=== PATIENT | female | born 1950 | race Caucasian/White ===

== ENCOUNTER 2016-08-04 18:23 | Emergency (ER) | payer MEDICARE, OTHER ==
[2016-08-04] MEDS ORDERED: Ibuprofen TAB* 600 MG PO ONE (19:27)
--- NOTE | 2016-08-04 20:10 | RAD ---
INDICATION: Bilateral ankle pain COMPARISON: None TECHNIQUE: AP, lateral, and oblique views of each ankle were obtained. FINDINGS: Right ankle: The bony structures, joint spaces, and soft tissues are normal for age. Left ankle: There may be a lateral malleolar fracture. This would represent a nondisplaced fracture. There is a posterior malleolar fracture. The ankle activity clears normally. There is prominent lateral soft tissue swelling IMPRESSION: 1. NO ACUTE ABNORMALITIES OF THE RIGHT ANKLE 2. LEFT-SIDED POSTERIOR MALLEOLAR FRACTURE AND POSSIBLE NONDISPLACED LATERAL MALLEOLAR FRACTURE. LATERAL SOFT TISSUE SWELLING.
[2016-08-04 21:49] VITALS: BP 113/74
--- NOTE | 2016-08-04 21:57 | ED ---
Lower Extremity - HPI Summary HPI Summary: Patient is an otherwise healthy 65yo F who presents to ED s/p fall. She c/o bilateral ankle pain, swelling and ecchymosis with worse symptoms on the left. She denies hitting her head or LOC. She feels well otherwise and denies any other pain. She took Tylenol prior to arrival. She arrives by ambulance. Denies numbness or tingling or color changes. Denies pain in knees or other areas. Patient denies any blood thinners. She feels the injury occurred while tripping and plantarflexing the feet and rolling over them. History of breast CA. Patient of Dr. Watson for elbow injury last year. - History of Current Complaint Chief Complaint: EDExtremityLower Stated Complaint: FALL Time Seen by Provider: 08/04/16 18:36 Hx Obtained From: Patient Mechanism Of Injury: Twisted Onset of Pain: Immediate Onset/Duration: Hours Severity Initially: Moderate Severity Currently: Moderate Pain Intensity: 5 Pain Scale Used: 0-10 Numeric Timing: Constant Location: Is Discrete @ - bilateral lateral ankles Character Of Pain: Dull, Aching Associated Signs And Symptoms: Positive: Swelling, Redness, Bruising Aggravating Factor(s): Standing, Ambulation, Weight Bearing, Stairs Alleviating Factor(s): Rest, Elevation, Ice Able to Bear Weight: No - Risk Factors Gout Risk Factors: Age Over 40 DVT Risk Factors: Malignancy - prior breast cancer Septic Arthritis Risk Factor: Negative - Allergies/Home Medications Allergies/Adverse Reactions: Allergies Allergy/AdvReac Type Severity Reaction Status Date / Time Metz Oil [From Metz] Allergy Rash Verified 12/28/15 14:05 Gluten Meal Allergy Fatigue Verified 12/28/15 14:05 dairy Allergy Fatigue Uncoded 12/28/15 14:05 PMH/Surg Hx/FS Hx/Imm Hx Previously Healthy: Yes - Cancer History Cancer Type, Location and Year: Breast Ca Hx Chemotherapy: No Hx Radiation Therapy: No - Surgical History Surgery Procedure, Year, and Place: Exp lap. Tonsillectomy Infectious Disease History: No Infectious Disease History: Denies: History Other Infectious Disease, Traveled Outside the [place] in Last 30 Days - Family History Known Family History: Negative: Diabetes - Social History Occupation: Unemployed Lives: With Family Alcohol Use: None Hx Substance Use: No Substance Use Type: Reports: None Hx Tobacco Use: No Smoking Status (MU): Never Smoked Tobacco Review of Systems Constitutional: Negative Eyes: Negative Cardiovascular: Negative Respiratory: Negative Positive: no symptoms reported, see HPI Positive: Arthralgia Positive: Bruising Neurological: Negative Psychological: Normal All Other Systems Reviewed And Are Negative: Yes Physical Exam - Summary Physical Exam Summary: MSK: Thorough physical exam was performed, focusing on ankle special tests. Pain on palpation over lateral aspect and superior aspect of ankle over ATFL and deltoid ligaments of bilateral ankles. No pain on palpation over medial side. Due to patient pain around injury, physical exam was limited. Unable to perform anterior drawer test or talar tilt test d/t pain. Ruffin test negative. Limited ROM. Dorsiflexion, great toe extension and plantar flexion intact however limited. No pain on palpation over medial or lateral lower extremity. No pain with knee flexion. Pulses intact bilaterally. No temperature change or pallor noted bilaterally. Ecchymosis and swelling noted on lateral aspect of both ankles with worsening swelling and ecchymosis over left ankle. No lesion or disruption of skin is seen. Unable to bear weight. Triage Information Reviewed: Yes Vital Signs On Initial Exam: Initial Vitals Temp Pulse Resp BP Pulse Ox 98.5 F 75 17 144/85 99 08/04/16 18:28 08/04/16 18:28 08/04/16 18:28 08/04/16 18:28 08/04/16 18:28 Vital Signs Reviewed: Yes Appearance: Positive: Well-Appearing, No Pain Distress, Well-Nourished Skin: Positive: Warm, Skin Color Reflects Adequate Perfusion, Other - ecchymosis over bilateral ankles with swelling Head/Face: Positive: Normal Head/Face Inspection Eyes: Positive: EOMI, LORRAINE, Conjunctiva Clear Neck: Positive: Supple, Nontender, No Lymphadenopathy Respiratory/Lung Sounds: Positive: Clear to Auscultation, Breath Sounds Present Cardiovascular: Positive: Normal, Pulses are Symmetrical in both Upper and Lower Extremities Musculoskeletal: Positive: Pain @ - bilateral ankles Neurological: Positive: Speech Normal Psychiatric: Positive: Normal Diagnostics - Vital Signs Vital Signs Temp Pulse Resp BP Pulse Ox 08/04/16 21:48 97.4 F 70 16 113/74 08/04/16 20:25 98.7 F 78 17 137/86 98 08/04/16 18:30 98.5 F 75 17 144/85 99 08/04/16 18:28 98.5 F 75 17 144/85 99 - Laboratory Lab Statement: Any lab studies that have been ordered have been reviewed, and results considered in the medical decision making process. Lower Extremity Course/Dx - Course Course Of Treatment: Patient arrives s/p mechanical fall with bilateral ankle pain. MSK: Thorough physical exam was performed, focusing on ankle special tests. Pain on palpation over lateral aspect and superior aspect of ankle over ATFL and deltoid ligaments of bilateral ankles. No pain on palpation over medial side. Due to patient pain around injury, physical exam was limited. Unable to perform anterior drawer test or talar tilt test d/t pain. Ruffin test negative. Limited ROM. Dorsiflexion, great toe extension and plantar flexion intact however limited. No pain on palpation over medial or lateral lower extremity. No pain with knee flexion. Pulses intact bilaterally. No temperature change or pallor noted bilaterally. Ecchymosis and swelling noted on lateral aspect of both ankles with worsening swelling and ecchymosis over left ankle. No lesion or disruption of skin is seen. Unable to bear weight. Based on [place] Ankle Rules, patient sent to imaging. IMPRESSION: 1. NO ACUTE ABNORMALITIES OF THE RIGHT ANKLE. 2. LEFT-SIDED POSTERIOR MALLEOLAR FRACTURE AND POSSIBLE NONDISPLACED LATERAL MALLEOLAR. FRACTURE. LATERAL SOFT TISSUE SWELLING. Soft tissue swelling noted over the lateral aspect of both ankles. Medial and lateral distal lower extremity without pain and x-rays show no widening of the ankle joint regarding low suspicion for [place] fx. Posterior walking with sugar tong placed over left ankle. Right ankle was lei wrapped to patient comfort to allow for immobilization for this period of time. Crutches given. Patient given orthopedic follow up in 5-7 days. Encouraged Ibuprofen 600mg three times daily with meals for pain. Return precautions given. Educated patient regarding ankle injuries and healing time and the possibility of further evaluation and imaging as orthopedist sees fit. Will follow up with Dr. Sutton next week. Called transportation for her to arrive home as she is non weight bearing and has no wheelchair. Information given for [employer] and how to obtain a wheelchair tomorrow. She is OK with discharge and follow up. Ibuprofen given in ED. - Diagnoses Differential Diagnosis/HQI/PQRI: Positive: Contusion, Dislocation, Fracture ( Closed), Fracture (Open), Sprain Provider Diagnoses: Fracture, posterior malleolus, Ankle sprain Discharge - Discharge Plan Condition: Stable Disposition: HOME Patient Education Materials: Ankle Fracture (ED), Crutch Instructions (ED) Referrals: Elvia Malloy MD [Primary Care Provider] - Asif Sutton MD [Medical Doctor] - Additional Instructions: Follow up with Dr. Sutton. Call office tomorrow Ibuprofen 600mg three times daily with meals for pain. Follow up with orthopedic physician in 5-7 days. If numbness, tingling, decreased sensation, increased pain, temperature changes or pallor noted in toes, come back to ER immediately. Protect the area. For your comfort level, do not bear weight, pull or push until you can injury is somewhat healed. This may involve the need for immobilization or crutches for a period of time. Rest the involved area, but not too long. You may need to be off your injury for some time to allow for healing, however excessive immobilization of joints can lead to stiffness and delay healing time. Early mobilization is encouraged if it is pain-free. Ice. Not directly on the skin. Cover with a towel. Apply ice no more than 30 minutes at a time Compression: You may use and keep an lei wrap bandage over the injury to decrease swelling. Again, this should be limited and be taken off periodically to encourage early range of motion and mobilization. Elevate: Try to elevate the injured area above the heart whenever possible.
== END 2016-08-04 21:49 | disposition home or self-care (01) ==
LOC: ED 18:23
DX: S82.62XA Displaced fracture of lateral malleolus of left fibula, initial encounter for closed fracture (principal); W19.XXXA Unspecified fall, initial encounter; Y93.9 Activity, unspecified; Y92.9 Unspecified place or not applicable
CPT/HCPCS: 99282; A9270-GY